=== PATIENT | female | born 1975 | race Caucasian/White ===

== ENCOUNTER → 2018-07-21 | Outpatient (CLI) | payer BC ==
[2018-07-21 15:55] VITALS: BP 106/70; PULSE 93; RESP 16; TEMP 98.6; BMI 29.5
--- NOTE | 2018-07-21 16:19 | P.GSHP ---
History of Present Illness H&P Date: 07/21/18 Chief Complaint: abnormal ultrasound and mammogram of the Ileana is a 42-year-old white female who had a routine screening mammogram performed on . This was a 3-D mammogram and she was noted to have 1 spot in each breast. In the left breast there was a 5 mm nodule posterior depth outer aspect which was felt to be a benign lymph node. There was a similar 4-5 mm round well-circumscribed lesion middle depth the right breast slightly inferior aspect. No suspicious clustered microcalcifications were evident. The 4-5 mm round lesion middle depth right breast is felt to be benign but is somewhat atypical location for a lymph node and therefore targeted ultrasound was recommended. Ultrasound of that area was performed on 1418. This revealed a complex echogenic structure measuring 0.53 x 0.44 cm at the 8 o'clock position and a core biopsy was recommended. The patient herself has not felt any masses or nodules in her breast. She has had no nipple discharge or skin changes. She has had no history of trauma or infection to the breast. Not having any breast pain. Family history: 1. great grandfather maternal: pancreatic cancer 2. maternal great aunt: pancreatic cancer Hormonal History: menarche: 13 : 4, children, 3, 1 , first at 27, breast fed: yes periods regular BCP: DEPO shot, patient has endometriosis hormones:none Past surgical history: 1. Laparoscopic evaluation secondary to endometriosis 2. Left thumb surgery 3. Ovarian cyst removed, teratoma Past Medical History: none Social History: smoke: none alcohol: 2/day drugs: none - Constitutional Constitutional: Denies chills, Denies fever - EENT Eyes: denies blurred vision, denies pain Ears: deny: decreased hearing, tinnitus Ears, nose, mouth and throat: Denies headache, Denies sore throat - Breasts Breasts: bilateral: as per HPI - Cardiovascular Cardiovascular: Denies chest pain, Denies shortness of breath - Respiratory Respiratory: Denies cough, Denies 7 - Gastrointestinal Gastrointestinal: Denies abdominal pain, Denies diarrhea, Denies nausea, Denies vomiting - Genitourinary (Female) Genitourinary: Denies dysuria, Denies hematuria - Menstruation Comment: MRSA vaginal area, drained Menstruation: Reports period normal - Musculoskeletal Musculoskeletal: Denies myalgias - Integumentary Comment: Eczema occasionally of her hands Integumentary: Denies pruritus, Denies rash - Neurological Neurological: Denies numbness, Denies weakness - Psychiatric Psychiatric: Reports anxiety, Reports depression - Endocrine Comment: gained 30 pounds related to depo shot Endocrine: Reports weight change, Denies fatigue - Hematologic/Lymphatic Comment: none - Allergic/Immunologic Allergic/Immunologic: Reports as per HPI, Reports seasonal allergies Past Medical History History of Any Multi-Drug Resistant Organisms: MRSA Date of last positivie culture/infection: 2007 MDRO Source:: vaginal Smoking Status: Never smoker Medications and Allergies Home Medications Medication Instructions Recorded Confirmed Type Multivitamin [Multivitamins Adult 07/21/18 History Gummies] Surgical - Exam Vital Signs Temp Pulse Resp BP Pulse Ox 98.6 F 93 16 106/70 97 07/21/18 15:43 07/21/18 15:43 07/21/18 15:43 07/21/18 15:43 07/21/18 15:43 BMI 29.5 - General well developed, well nourished, no distress - Eyes normal ocular movement - ENT no hearing loss, no congestion - Neck no masses, trachea midline - Respiratory normal respiratory effort, clear to auscultation - Cardiovascular Rhythm: regular Heart Sounds: normal: S1, S2 - Abdomen Abdomen: soft, non tender, no guarding, no rigid, no rebound - Integumentary normal turgor nevi of the breast to nevi on the left breast one in the upper outer quadrant area and one in the inferior aspect of the breast additionally there is a nevus in between the breast which is dark but this will be followed depending on results of biopsy of the breast nevi - Neurologic no disoriented, no combative - Musculoskeletal normal gait, normal posture - Psychiatric oriented to time, oriented to person, oriented to place, speech is normal, memory intact Breast examination: Right breast: Multi-positional exam fibrocystic changes no dominant masses or nodules of concern Right axilla: No adenopathy of concern Left breast: Multi-positional exam no dominant masses or nodules of concern Left axilla: No adenopathy of concern Please note on examination of the skin 2 nevi are demonstrated there somewhat dark with irregular borders one is on the inferior aspect of the left breast and the other is in the upper quadrant area of the left breast and recommended both of these be excised Results Mammogram results reviewed ultrasound results reviewed Assessment and Plan Assessment: Impression: 1. Radiographic abnormality right breast for which ultrasound was performed and right breast ultrasound core biopsy recommended 2. Fibrocystic changes bilaterally in the breast 3. Radiographic change in the left breast felt to be benign being followed 4. Nevi of the left breast for excision 5. Status post MRSA Plan: 1. Ultrasound core biopsy right breast 2. Close surveillance of the left breast 3. Excision of 2 nevi the left breast in the office at the postoperative visit for her ultrasound core biopsy Risk and benefits of procedure discussed with the patient is to be scheduled in the near future CC: Dr. Price, Dr. Traore
== END ==
LOC: WWCWWP 15:36
PROVIDERS: ATTEND Surgery
DX: Z53.9 Procedure and treatment not carried out, unspecified reason (principal)

== ENCOUNTER → 2018-07-27 | Day surgery (SDC) | payer BC ==
[2018-07-27 13:43] VITALS: RESP 16; BMI 30.2
[2018-07-27 14:22] VITALS: BP 119/70; PULSE 72; TEMP 98.1
--- NOTE | 2018-07-27 14:43 | USB ---
EXAMINATION TYPE: US biopsy breast VAD RT, MG diagnostic mammo RT wo CAD DATE OF EXAM: 07/27/2018 CLINICAL HISTORY: R92.8 Abnormal mammogram. TECHNIQUE: Ultrasound guided core biopsy of right 8:00 breast. COMPARISON: NONE FINDINGS: The procedure of ultrasound guided core biopsy was explained to the patient. Benefits, alt ernatives, and risks were discussed. An informed consent was then obtained. The patient was placed in supine positioning for imaging and for the procedure. The overlying skin w as prepped and draped in usual sterile fashion. Lidocaine buffered with bicarbonate was used as anes thetic into the skin and subcutaneous tissue up to area of concern in the right 8:00 breast. A pham was made with surgical scalpel. Under ultrasound guidance, a 12-gauge vacuum assisted biopsy gun device was used to obtain [address]. Following this, a biopsy clip was left in lesion. Postprocedural mammogram demonstrates appro priate deployment. The patient tolerated the procedure well without any immediate complication. The patient was kept in the radiology department for short stay after the procedure and then discharged home in stable condi tion. IMPRESSION: Successful, uncomplicated ultrasound guided core biopsy of area of concern in the right b reast, full pathology results to follow.
== END ==
LOC: RADUSWWP 12:47
PROVIDERS: ATTEND Surgery
DX: N60.31 Fibrosclerosis of right breast (principal)
CPT/HCPCS: 77065; 19083; A4648; J2001; 88305

== ENCOUNTER → 2018-08-04 | Outpatient (CLI) | payer BC ==
[2018-08-04 10:27] VITALS: BP 116/53; PULSE 75; RESP 16; TEMP 97.9
--- NOTE | 2018-08-04 11:05 | P.PN ---
Subjective Progress Note Date: 08/04/18 Ileana is a 42-year-old white female who is status post right breast ultrasound core biopsy performed on 2718. Pathology revealed a benign lymph node and focal adjacent benign breast tissue with fibrosis. The patient did develop somewhat of a ecchymosis and a small hematoma at the site. She is doing well though at this time without complaints. Physical exam: mild ecchymosis at the site of biopsy No evidence of infection Small hematoma Lungs clear Heart regular rate and rhythm Objective - Vital Signs Vital signs: Vital Signs Temp 97.9 F 08/04/18 10:25 Pulse 75 08/04/18 10:25 Resp 16 08/04/18 10:25 BP 116/53 08/04/18 10:25 Pulse Ox 98 08/04/18 10:25 Intake & Output 08/03/18 08/04/18 08/04/18 18:59 06:59 18:59 Weight 87.997 kg - Constitutional General appearance: Present: average body habitus - EENT Eyes: Present: EOMI - Neck Neck: Present: normal ROM - Respiratory Respiratory: bilateral: CTA - Cardiovascular Rhythm: regular Heart sounds: normal: S1, S2 - Psychiatric Psychiatric: Present: A&O x's 3, appropriate affect - Additional findings Additional findings: Right breast examination: Core biopsy site clean and dry Ecchymosis a core biopsy site Mild small hematoma No evidence of any infection Assessment and Plan Assessment: Impression: 1. Benign lymph node on ultrasound core biopsy right breast Plan: 1. Repeat right breast mammogram and ultrasound in 6 months with physician exam at that time 2. 2 nevi of concern on the left breast for which patient is going to undergo excisional biopsy at this time. Cc:Eugenie Price
--- NOTE | 2018-08-04 11:08 | P.OP ---
Date of Procedure: 08/04/18 Preoperative Diagnosis: 2 nevi of concern on the left breast, one in the upper outer quadrant area, one at 6:00 Postoperative Diagnosis: Same Procedure(s) Performed: Excisional biopsy nevi Anesthesia: local Surgeon: Ale Paul Estimated Blood Loss (ml): 1 Pathology: other (Nevus at 6:00, and nevus and upper outer quadrant of the left breast) Condition: stable Disposition: same day Indications for Procedure: 2 skin nevi left breast of concern Operative Findings: 2 skin nevi Description of Procedure: The patient was brought to the procedure room. The area of concern in the left breast was prepped using Betadine. The 6:00 was patient nevus was approached initially. This was prepped using Betadine. 1% lidocaine was used to anesthetize the area of concern. Using a 15 blade scalpel wide excision was performed. The area was measured this was 1.5 cm in size. The skin was closed using a nylon suture. Following this a dressing was applied. The area in the upper quadrant was approached. This lesion was approximately 2 cm in size. The skin was prepped using Betadine. 1% lidocaine was used to anesthetize the area of concern. Wide excision was performed. Skin was closed using a nylon suture. Specimens were sent to pathology. Patient tolerated procedure in stable condition. Patient will follow up next week for suture removal and biopsy results.
== END ==
LOC: WWCWWP 10:23
PROVIDERS: ATTEND Surgery
DX: D24.2 Benign neoplasm of left breast (principal)
CPT/HCPCS: 88305

== ENCOUNTER → 2018-08-10 | Outpatient (CLI) | payer BC ==
[2018-08-10 13:07] VITALS: BP 109/78; PULSE 71; RESP 16; TEMP 98.5; BMI 29.5
--- NOTE | 2018-08-10 13:39 | P.PN ---
Subjective Progress Note Date: 08/10/18 Principal diagnosis: Excision of skin nevi Ileana is status post excision of 2 nevi on the right breast [place] [id number]. Pathology was benign for both. Incisions clean and dry. Patient with no complaints. Objective - Vital Signs Vital signs: Vital Signs Temp 98.5 F 08/10/18 13:03 Pulse 71 08/10/18 13:03 Resp 16 08/10/18 13:03 BP 109/78 08/10/18 13:03 Pulse Ox 99 08/10/18 13:03 Intake & Output 08/09/18 08/10/18 08/10/18 18:59 06:59 18:59 Weight 87.997 kg - Constitutional General appearance: Present: average body habitus - EENT Eyes: Present: EOMI ENT: Present: hearing grossly normal - Integumentary Integumentary Comment(s): Incision clean and dry Assessment and Plan Assessment: Impression: 1. Patient status post excision of left skin nevus of right breast 2. Pathology benign Plan: 1. Follow-up and normal interval for breast exam CC: Dr. Klaudia Traore
== END | disposition home or self-care (01) ==
LOC: WWCWWP 12:51
PROVIDERS: ATTEND Surgery
DX: Z53.9 Procedure and treatment not carried out, unspecified reason (principal)

== ENCOUNTER → 2019-01-26 | Outpatient (CLI) | payer BC ==
--- NOTE | 2019-01-29 08:30 | MM ---
Reason for exam: follow-up at short interval from prior study. Last mammogram was performed 6 months ago. History: Benign US biopsy breast VAD RT of the right breast, July 27, 2018. Physical Findings: Nurse did not find any significant physical abnormalities on exam. MG Diagnostic Mammo RT w CAD CC and MLO view(s) were taken of the right breast. Prior study comparison: July 27, 2018, right breast MG diagnostic mammo RT wo CAD. There are scattered fibroglandular densities. There is a stable right mass at 8 o'clock appearing as a lymph node on 07/03/18, biopsy proven lymph node. No suspicious abnormality. These results were verbally communicated with the patient and result sheet given to the patient on 01/26/19. ASSESSMENT: Benign, BI-RAD 2 RECOMMENDATION: Routine screening mammogram of both breasts in 5 months. Back on schedule for June 2019.
== END | disposition home or self-care (01) ==
LOC: RADMAMWWP 07:37
PROVIDERS: ATTEND Surgery
DX: R92.8 Other abnormal and inconclusive findings on diagnostic imaging of breast (principal)
CPT/HCPCS: 77065

== ENCOUNTER → 2019-03-08 | Outpatient (CLI) | payer BC ==
[2019-03-08 13:08] VITALS: BP 110/72; PULSE 96; RESP 16; TEMP 98.3; BMI 28.0
--- NOTE | 2019-03-08 13:42 | P.PN ---
Subjective Progress Note Date: 03/08/19 Ileana is a 43-year-old white female [place] [id number]. This was a 3-D mammogram and she was noted to have 1 spot in each breast. In the left breast there was a 5 mm nodule posterior depth outer aspect which was felt to be a benign lymph node. There was a similar 4-5 mm round well-circumscribed lesion middle depth the right breast slightly inferior aspect. No suspicious clustered microcalcifications were evident. The 4-5 mm round lesion middle depth right breast is felt to be benign but is somewhat atypical location for a lymph node and therefore targeted ultrasound was recommended. Ultrasound of that area was performed on . This revealed a complex echogenic structure measuring 0.53 x 0.44 cm at the 8 o'clock position and a core biopsy was recommended. The biopsy was a benign lymph node and repeat mammogram in 6 months from procedure recommended. She had a repeat mammogram on 01-26-19 of the right breast. This was benign BIRAD 2, and repeat mammogram in 5 months recommended. The patient does not complain of any changes in her breast. She is complaining of any breast pain, masses nodules or skin changes, or any nipple discharge of concern. Family history: 1. great grandfather maternal: pancreatic cancer 2. maternal great aunt: pancreatic cancer Hormonal History: menarche: 13 : 4, children, 3, 1 , first at 27, breast fed: yes periods regular BCP: DEPO shot in October of 2017, not one since hormones:none Past surgical history: 1. Laparoscopic evaluation secondary to endometriosis 2. Left thumb surgery 3. Ovarian cyst removed, teratoma Past Medical History: none Social History: smoke: none alcohol: 2/day drugs: none - Constitutional Constitutional: Denies chills, Denies fever - EENT Eyes: denies blurred vision, denies pain Ears: deny: decreased hearing, tinnitus Ears, nose, mouth and throat: Denies headache, Denies sore throat - Breasts Breasts: bilateral: as per HPI - Cardiovascular Cardiovascular: Denies chest pain, Denies shortness of breath - Respiratory Respiratory: Denies cough, - Gastrointestinal Gastrointestinal: Denies abdominal pain, Denies diarrhea, Denies nausea, Denies vomiting - Genitourinary (Female) Genitourinary: Denies dysuria, Denies hematuria - Menstruation periods regular last one 1 week ago MRSA vaginal area, drained Menstruation: Reports period normal - Musculoskeletal Musculoskeletal: Denies myalgias - Integumentary Comment: Eczema occasionally of her hands Integumentary: Denies pruritus, Denies rash - Neurological Neurological: Denies numbness, Denies weakness - Psychiatric Psychiatric: Reports anxiety, Reports depression - Endocrine Comment: gained 30 pounds related to depo shot Endocrine: Reports weight change, Denies fatigue - Hematologic/Lymphatic Comment: none - Allergic/Immunologic Allergic/Immunologic: Reports as per HPI, Reports seasonal allergies Past Medical History History of Any Multi-Drug Resistant Organisms: MRSA Date of last positivie culture/infection: 2007 MDRO Source:: vaginal Smoking Status: Never smoker alcohol: weekends drugs: none Objective - Vital Signs Vital signs: Vital Signs Temp 98.3 F 03/08/19 13:06 Pulse 96 03/08/19 13:06 Resp 16 03/08/19 13:06 BP 110/72 03/08/19 13:06 Pulse Ox 97 03/08/19 13:06 Intake & Output 03/07/19 03/08/19 03/08/19 18:59 06:59 18:59 Weight 86.183 kg - Exam BMI 28.1 - Constitutional General appearance: Present: average body habitus - EENT Eyes: Present: EOMI ENT: Present: hearing grossly normal - Neck Neck: Present: normal ROM - Respiratory Respiratory: bilateral: CTA - Cardiovascular Rhythm: regular Heart sounds: normal: S1, S2 - Gastrointestinal General gastrointestinal: Present: soft - Integumentary Integumentary: Present: normal turgor - Musculoskeletal Musculoskeletal: Present: gait normal - Psychiatric Psychiatric: Present: A&O x's 3, appropriate affect, intact judgment & insight - Additional findings Additional findings: breast exam: Right breast: Multi-positional exam no dominant masses or nodules of concern, fibrocystic changes Right axilla: No adenopathy of concern Left breast: Multi-positional exam no dominant masses or nodules of concern Left axilla: No adenopathy of concern Well-healed scars from resection of mass left breast no evidence of recurrence Assessment and Plan Assessment: Impression: 1. Fibrocystic changes laterally 2. Stable mammogram right breast [id number] 3. Family history positive for pancreatic cancer in maternal great aunt and great grandfather 4. No evidence of recurrent nevi left breast Plan: 1. Repeat bilateral mammogram in 5 months with physician exam at that time 2. Patient will call if she has any questions or concerns CC: DR. Traore
== END | disposition home or self-care (01) ==
LOC: WWCWWP 12:59
PROVIDERS: ATTEND Surgery
DX: Z53.9 Procedure and treatment not carried out, unspecified reason (principal)

== ENCOUNTER → 2019-07-02 | Outpatient (CLI) | payer BC ==
--- NOTE | 2019-07-03 11:44 | MM ---
Reason for exam: screening (asymptomatic). Last mammogram was performed 5 months ago. History: Benign US biopsy breast VAD RT of the right breast, July 27, 2018. Physical Findings: A clinical breast exam by your physician is recommended on an annual basis and results should be correlated with mammographic findings. MG Screening Mammo w CAD Bilateral CC and MLO view(s) were taken. Prior study comparison: January 26, 2019, right breast MG diagnostic mammo RT w CAD. July 27, 2018, right breast MG diagnostic mammo RT wo CAD. There are scattered fibroglandular densities. There is no discrete abnormality. No significant changes when compared with prior studies. ASSESSMENT: Negative, BI-RAD 1 RECOMMENDATION: Routine screening mammogram of both breasts in 1 year.
== END | disposition home or self-care (01) ==
LOC: RADMAMWWP 07:09
PROVIDERS: ATTEND Surgery
DX: Z12.31 Encounter for screening mammogram for malignant neoplasm of breast (principal)
CPT/HCPCS: 77067

== ENCOUNTER → 2022-01-11 | Outpatient (CLI) | payer BC ==
--- NOTE | 2022-01-12 08:13 | MM ---
Reason for Exam: Screening (asymptomatic). Last mammogram was performed 2 year(s) and 6 month(s) ago. Patient History: Menarche at age 13. First Full-Term at age 27. 07/27/2018, Benign Core Biopsy on the right side. Last menstrual period: 09/18/2021 Risk Values: Gayathri 5 year model risk: 1.4%. NCI Lifetime model risk: 12.5%. Prior Study Comparison: 07/27/2018 Right Diagnostic Mammogram, [facility]. 01/26/2019 Right Diagnostic Mammogram, [facility]. 07/02/2019 Bilateral Screening Mammogram, [facility]. Tissue Density: The breast tissue is heterogeneously dense. This may lower the sensitivity of mammography. Findings: Analyzed By CAD. Chronic nodularity is seen bilaterally. Biopsy clip marker in the right stable. Question of an area of somewhat irregular nodularity in the upper central margin of the left breast. No suspicious grouped calcifications. Overall Assessment: Incomplete: need additional imaging evaluation, BI-RAD 0 Management: Special View Mammogram of the left breast. A clinical breast exam by your physician is recommended on an annual basis and results should be correlated with mammographic findings. Electronically signed and approved by: Angelo Gonzalez M.D. Radiologis
== END | disposition home or self-care (01) ==
LOC: RADMAMWWP 07:12
PROVIDERS: ATTEND Obstetrics & Gynecology
DX: Z12.31 Encounter for screening mammogram for malignant neoplasm of breast (principal)
CPT/HCPCS: 77067

== ENCOUNTER → 2022-01-13 | Outpatient (CLI) | payer BC ==
--- NOTE | 2022-01-13 15:23 | MM ---
Reason for Exam: Additional evaluation requested from abnormal screening. Last screening mammogram was performed less than 1 month ago. Patient History: Menarche at age 13. First Full-Term at age 27. 07/27/2018, Benign Core Biopsy on the right side. Risk Values: Gayathri 5 year model risk: 1.4%. NCI Lifetime model risk: 12.5%. Prior Study Comparison: 01/26/2019 Right Diagnostic Mammogram, [facility]. 07/02/2019 Bilateral Screening Mammogram, [facility]. 01/11/2022 Bilateral MG screening mammo w CAD, [facility]. Tissue Density: Left: There are scattered fibroglandular densities. Findings: Analyzed By CAD. Under compression no persistent suspicious distortion is evident. Left medial lateral view appears normal. There is chronic nodularity within the left breast. Overall Assessment: Probably benign, BI-RAD 3 Management: Diagnostic Mammogram of the left breast in 6 months. A clinical breast exam by your physician is recommended on an annual basis and results should be correlated with mammographic findings. This exam should not preclude additional follow-up of suspicious palpable abnormalities. Results were given to the patient verbally at the time of exam. Electronically signed and approved by: Jovon Dooley D.O. Radiologis
== END | disposition home or self-care (01) ==
LOC: RADMAMWWP 13:43
PROVIDERS: ATTEND Obstetrics & Gynecology
DX: R92.8 Other abnormal and inconclusive findings on diagnostic imaging of breast (principal)
CPT/HCPCS: 77065

== ENCOUNTER → 2022-09-15 | Outpatient (CLI) | payer BC ==
--- NOTE | 2022-09-15 07:46 | MM ---
Reason for Exam: Follow-up at short interval from prior study. Last screening mammogram was performed 8 month(s) ago. Patient History: Menarche at age 13. First Full-Term at age 27. 07/27/2018, Benign Core Biopsy on the right side. Last menstrual period: 04/07/2022 Risk Values: Gayathri 5 year model risk: 1.4%. NCI Lifetime model risk: 12.3%. Prior Study Comparison: 07/02/2019 Bilateral Screening Mammogram, [facility]. 01/11/2022 Bilateral MG screening mammo w CAD, [facility]. 01/13/2022 Left MG work up mamm w CAD LT, [facility]. Tissue Density: Left: There are scattered fibroglandular densities. Findings: Analyzed By CAD. Focal asymmetric density in the mid left breast compresses normally. No suspicious residual. No suspicious groups of microcalcifications, spiculated or lobular masses, architectural distortion or other secondary signs of malignancy are mammographically apparent. Overall Assessment: Benign, BI-RAD 2 Management: Screening Mammogram of both breasts in 5 months. A negative mammogram report should not preclude additional follow up of suspicious palpable abnormalities. Patient should continue monthly self breast exam. A clinical breast exam by your physician is recommended on an annual basis and results should be correlated with mammographic findings. Electronically signed and approved by: Jovon Dooley D.O. Radiologis
== END | disposition home or self-care (01) ==
LOC: RADMAMWWP 07:00
PROVIDERS: ATTEND Obstetrics & Gynecology
DX: R92.8 Other abnormal and inconclusive findings on diagnostic imaging of breast (principal); N60.02 Solitary cyst of left breast
CPT/HCPCS: 77065

== ENCOUNTER → 2023-04-27 | Outpatient (CLI) | payer BC ==
--- NOTE | 2023-04-28 12:39 | MM ---
Reason for Exam: Screening (asymptomatic). Last mammogram was performed 1 year(s) and 4 month(s) ago. Patient History: Menarche at age 13. First Full-Term at age 27. Patient has history of breast feeding. 07/27/2018, Benign Core Biopsy on the right side. Risk Values: Gayathri 5 year model risk: 1.4%. NCI Lifetime model risk: 12.3%. Prior Study Comparison: 01/11/2022 Bilateral MG screening mammo w CAD, [facility]. 01/13/2022 Left MG work up mamm w CAD LT, [facility]. 09/15/2022 Left MG diagnostic mammo LT w CAD, [facility]. Tissue Density: There are scattered fibroglandular densities. Findings: Analyzed By CAD. Pattern is symmetrical and stable. Core markers within the right breast. No suspicious groups of microcalcifications, spiculated or lobular masses, architectural distortion or other secondary signs of malignancy are mammographically apparent. Overall Assessment: Benign, BI-RAD 2 Management: Screening Mammogram of both breasts in 1 year. A negative mammogram report should not preclude additional follow up of suspicious palpable abnormalities. Patient should continue monthly self breast exam. A clinical breast exam by your physician is recommended on an annual basis and results should be correlated with mammographic findings. Electronically signed and approved by: Jovon Dooley D.O. Radiologis
== END | disposition home or self-care (01) ==
LOC: RADMAMWWP 14:37
PROVIDERS: ATTEND Obstetrics & Gynecology
DX: Z12.31 Encounter for screening mammogram for malignant neoplasm of breast (principal)
CPT/HCPCS: 77063; 77067